=== PATIENT | male | born 1955 | race Caucasian/White ===

== ENCOUNTER 2023-05-26 19:47 | Outpatient (CLI) | payer MEDICARE, OTHER ==
--- NOTE | 2023-05-29 08:24 | SLS ---
SLEEP STUDY Polysomnography report. HISTORY OF PRESENT ILLNESS: This patient is 67 and the patient saw me in the office for violent aggressive behavior occurring during sleep and ongoing for the past 5 years. Please refer to my detailed consultation note. He has an [place] score of 12. He also had snoring and witnessed apneas and positive family history for obstructive sleep apnea. He was taking melatonin. A screening polysomnography was ordered. TECHNICAL DESCRIPTION: The sleep evaluation of the patient consisted of clinical polysomnography, nocturnal respiratory battery, left and right anterior tibialis surface electromyography. The standard montage for the clinical polysomnography included the EEG, EOG, EMG, and EKG. Respiratory battery included measurements of nasal/buccal airflow, thoracic, and/or abdominal effort and intercostal surface EMG. Nocturnal oxyhemoglobin saturations were obtained by finger oximetry. Digital video and audio monitoring were done throughout the entire night to check or parasomnias. PERTINENT PHYSICAL FINDINGS: Height is 5 feet 6 inches, weight is 159 and a body mass index is 25.7. Sleep architecture. Total time in bed was 421.5 minutes. Total sleep time 355.0 minutes and the sleep efficiency was 84.2%. Latency to sleep onset is 14.5 minutes and the latency to REM sleep is 191.5 minutes. The sleep architecture was characterized by 28.0% stage I, 58.3% stage II, 3.7% stage III, and 10% REM sleep. The total arousal index was 10.5 and the time after sleep onset was 50.5 minutes. RESULTS: Respiratory analysis showed a total of 18 obstructive events, of which 3 were obstructive apneas, 0 were mixed apneas, and 15 were obstructive hypopneas and the resulting AHI was 3.0. No central apneas were noted. Respiratory arousal index was 0.8. OXYGENATION ANALYSIS: The average pulse ox at baseline was 94%. Lowest pulse ox during the sleep study was 90%. Minimum pulse ox was 89%. Minimum pulse ox during REM sleep was 92%. PERIODIC LIMB MOVEMENT SUMMARY: The patient had a total of 242 periodic limb movement activity with an index of 40.9. Only 2 periodic limb movement activity with arousals with an index of 0.3. CARDIAC SUMMARY: Average heart rate was 70, minimum heart rate 68, maximum heart rate 72. Video monitoring. No evidence of any REM behavioral disorder during the brief REM, that the patient encountered during the sleep study. Nevertheless, based on the reported history, the patient has become violent, aggressive during sleep, punching and kicking and thrashing and sometimes speaking foul language and yelling and swearing. On a few occasions, he has also fell out of bed. PLAN: 1. No evidence of any sleep breathing disorder. 2. We will treat the REM behavioral disorder with high dose of melatonin and add Klonopin if needed. 3. Continue improving his sleep hygiene measures and avoid any sleep deprivation. 4. Make the bedroom environment safe. 5. We will continue to follow. MMODL / IJN: [id number] /
== END 2023-05-27 05:30 | disposition home or self-care (01) ==
LOC: 3 N SLEEP 19:47
PROVIDERS: ATTEND Internal Medicine Critical Care Medicine
DX: G47.33 Obstructive sleep apnea (adult) (pediatric) (principal); G47.10 Hypersomnia, unspecified; G47.61 Periodic limb movement disorder
CPT/HCPCS: 95810